=== PATIENT | female | born 1945 | race Caucasian/White ===

== ENCOUNTER 2024-12-07 10:55 | Outpatient (CLI) | payer OTHER | END 2024-12-07 10:57 | disposition home or self-care (01) | LOC: SONOGRAMA 10:55 | PROVIDERS: ATTEND Pathology Anatomic Pathology | DX: C76.8 Malignant neoplasm of other specified ill-defined sites (principal); C77.0 Secondary and unspecified malignant neoplasm of lymph nodes of head, face and neck ==